=== PATIENT | female | born 1955 | race Caucasian/White ===

== ENCOUNTER → 2021-04-13 | Outpatient (CLI) | payer MEDICARE ==
[~2021-04-13] MED LIST: ALLERGY RELIEF10 M1 PO; AMLODIPINE-BEN1 EAC4 PO; CYMBALTA 30 MG30 MG PO; GLUCOPHAGE1000 MG PO; LIPITOR TAB 1010 MG PO; MECLIZINE HCL25 MG PO; MICROZIDE12.5 MG PO; NORCO 5-325 TA1 EACH PO; PROTONIX 40 MG40 M1 PO; SYNTHROID25 MCG PO
== END ==
LOC: EXRD 04-04 13:45
DX: I10 Essential (primary) hypertension (principal); R79.89 Other specified abnormal findings of blood chemistry; N28.89 Other specified disorders of kidney and ureter; K76.0 Fatty (change of) liver, not elsewhere classified
CPT/HCPCS: 76775

== ENCOUNTER → 2022-01-29 | Outpatient (CLI) | payer MEDICARE | LOC: NM 09:44 | DX: E11.9 Type 2 diabetes mellitus without complications (principal); E78.2 Mixed hyperlipidemia; E66.9 Obesity, unspecified; I10 Essential (primary) hypertension; R07.89 Other chest pain | CPT/HCPCS: 78452; 93017; A9502; J2785 ==

== ENCOUNTER → 2022-04-26 | Outpatient (CLI) | payer MEDICARE | LOC: MAMO 09:08 | DX: Z12.31 Encounter for screening mammogram for malignant neoplasm of breast (principal); Z78.0 Asymptomatic menopausal state | CPT/HCPCS: 77063; 77067 ==